=== PATIENT | female | born 1980 | race Caucasian/White ===

== ENCOUNTER → 2017-11-11 | Outpatient (CLI) | payer BC | LOC: MC.RAD 14:03 | DX: N63.10 Unspecified lump in the right breast, unspecified quadrant (principal) ==

== ENCOUNTER → 2017-11-13 | Outpatient (CLI) | payer BC | LOC: ZCOL.LAB 16:30 | DX: N63.10 Unspecified lump in the right breast, unspecified quadrant (principal) ==

== ENCOUNTER → 2017-11-24 | Outpatient (CLI) | payer BC | LOC: COL.RAD 09:05 | DX: N60.01 Solitary cyst of right breast (principal); N63.11 Unspecified lump in the right breast, upper outer quadrant | CPT/HCPCS: A4340 ==

== ENCOUNTER → 2017-12-05 | Outpatient (CLI) | payer BC ==
[~2017-12-05] MED LIST: NORCO 325 MG-51 TAB PO
== END ==
LOC: COL.RAD 15:30
DX: N63.10 Unspecified lump in the right breast, unspecified quadrant (principal)

== ENCOUNTER 2017-12-11 08:57 | Day surgery (SDC) | payer BC ==
[~2017-12-11] VITALS: Ht 170.2 cm; Wt 93.5 kg
[2017-12-11] VITALS (9 sets, daily range): BP systolic 97–134; BP diastolic 62–75; PULSE 67–94; TEMP 97.8–98.5
[2017-12-11] MEDS ORDERED: NORCO 325 MG-51 TAB PO (16:28)
== END 2017-12-11 15:45 | disposition home or self-care (01) ==
LOC: SDCO 08:57
DX: C50.911 Malignant neoplasm of unspecified site of right female breast (principal)
CPT/HCPCS: J0690; J1100; J1170; J1885; J2405; J2704; J3010; J7120

== ENCOUNTER → 2017-12-18 | Outpatient (CLI) | payer BC | LOC: MC.RAD 12:59 | DX: R22.31 Localized swelling, mass and lump, right upper limb (principal); Z85.3 Personal history of malignant neoplasm of breast ==

== ENCOUNTER → 2018-03-26 | Outpatient (CLI) | payer BC | LOC: COL.VAS 12:30 | DX: Z01.810 Encounter for preprocedural cardiovascular examination (principal); I34.0 Nonrheumatic mitral (valve) insufficiency; C50.811 Malignant neoplasm of overlapping sites of right female breast ==

== ENCOUNTER 2018-06-02 09:45 | Day surgery (SDC) | payer BC ==
[2018-06-02] VITALS (8 sets, daily range): BP systolic 97–117; BP diastolic 49–64; PULSE 59–83; TEMP 97.2–98.7
[~2018-06-02] VITALS: Ht 170.2 cm; Wt 81.6 kg
[2018-06-02] MEDS ORDERED: PRILOTC PO (13:34)
[2018-06-03 05:53] VITALS: BP 114/48; PULSE 59; TEMP 97.6
== END 2018-06-03 10:05 | disposition home or self-care (01) ==
LOC: SDCO 09:45 → OB 19:10 → SDCO 06-03 10:05
DX: C50.411 Malignant neoplasm of upper-outer quadrant of right female breast (principal); D64.9 Anemia, unspecified; Z83.3 Family history of diabetes mellitus
CPT/HCPCS: OP; A9541; J0690; J1100; J1170; J2270; J2405; J2550; J2704; J3010; J7120; Q9968

== ENCOUNTER 2018-12-21 15:00 | Outpatient (RCR) | payer BC ==
[~2018-12-21 15:00] MED LIST changes: +PRILOTC PO
== END 2019-02-21 | disposition home or self-care (01) ==
LOC: MKS.ESL.PT
DX: I89.0 Lymphedema, not elsewhere classified (principal); Z85.3 Personal history of malignant neoplasm of breast; Z90.11 Acquired absence of right breast and nipple; Z92.3 Personal history of irradiation; Z98.890 Other specified postprocedural states

== ENCOUNTER → 2019-02-23 | Outpatient (CLI) | payer BC | LOC: MC.RAD 13:55 | DX: C50.111 Malignant neoplasm of central portion of right female breast (principal); Z98.890 Other specified postprocedural states; Z92.3 Personal history of irradiation | CPT/HCPCS: G0279 ==

== ENCOUNTER 2019-05-26 08:00 | Outpatient (RCR) | payer BC | END 2019-06-21 | disposition still patient (30) | LOC: MKS.ESL.PT | DX: C50.111 Malignant neoplasm of central portion of right female breast (principal); I97.2 Postmastectomy lymphedema syndrome; Z98.890 Other specified postprocedural states ==

== ENCOUNTER 2019-08-25 08:00 | Outpatient (RCR) | payer BC | END 2019-11-23 | disposition home or self-care (01) | LOC: MKS.ESL.PT | DX: C50.911 Malignant neoplasm of unspecified site of right female breast (principal); I89.0 Lymphedema, not elsewhere classified; Z98.890 Other specified postprocedural states ==

== ENCOUNTER → 2020-02-25 | Outpatient (CLI) | payer BC | LOC: MC.RAD 07:40 | DX: Z12.31 Encounter for screening mammogram for malignant neoplasm of breast (principal); N63.10 Unspecified lump in the right breast, unspecified quadrant; Z90.11 Acquired absence of right breast and nipple; Z85.3 Personal history of malignant neoplasm of breast; Z92.3 Personal history of irradiation ==

== ENCOUNTER 2020-11-01 09:18 | Outpatient (RCR) | payer BC | END 2020-11-13 | disposition home or self-care (01) | LOC: MKS.ESL.PT | DX: C50.911 Malignant neoplasm of unspecified site of right female breast (principal); Z98.890 Other specified postprocedural states ==

== ENCOUNTER → 2021-02-26 | Outpatient (CLI) | payer BC | LOC: MC.RAD 09:01 | DX: Z12.31 Encounter for screening mammogram for malignant neoplasm of breast (principal); C50.811 Malignant neoplasm of overlapping sites of right female breast ==

== ENCOUNTER → 2022-02-27 | Outpatient (CLI) | payer BC | LOC: MC.RAD 09:44 | DX: Z12.31 Encounter for screening mammogram for malignant neoplasm of breast (principal); C50.811 Malignant neoplasm of overlapping sites of right female breast ==

== ENCOUNTER → 2023-02-28 | Outpatient (CLI) | payer BC | LOC: MC.RAD 08:20 | DX: Z12.31 Encounter for screening mammogram for malignant neoplasm of breast (principal); Z85.3 Personal history of malignant neoplasm of breast; Z98.890 Other specified postprocedural states; Z92.3 Personal history of irradiation ==